=== PATIENT | female | born 1990 | race Two or more races ===

== ENCOUNTER 2023-10-06 04:40 | Inpatient (IN) | payer OTHER ==
[~2023-10-06] VITALS: Ht 157.5 cm; Wt 76.2 kg
[2023-10-06] MEDS ORDERED: IRON240 MG PO (05:12)
[2023-10-06] MEDS ORDERED: PRENATAL CAPLE1 EAC1 (05:12)
[2023-10-06] MEDS ORDERED: NIFEDIPINE20 MG PO (05:12)
[2023-10-06 06:25] LABS: PH,URINE 6.5 (5.0-8.0); URINE APPEARANCE Clear; URINE BILIRRUBIN Negative (NEGATIVE); URINE BLOOD NHT; URINE COLOR Yellow; URINE GLUCOSE Negative (NEGATIVE); URINE LEUKOCYTE Negative; URINE NITRATE Negative; URINE PROTEIN Negative (NEGATIVE)
[2023-10-06 06:28] LABS: URINE BACTERIA 1537.9 uL (0.0-1933); URINE EPITHELIAL CELLS 23.7 uL (0.0-38.8); URINE RBC 17.9 uL (0.0-20.8); URINE WBC 3.2 uL (0.0-23.2)
[2023-10-06 06:39] LABS: INR < 0.93; PARTIAL THROMBOPLASTIN TIME 25.4 SECONDS (22.0-34.0); PROTHROMBIN TIME 9.3 SECONDS (9.0-11.5)
[2023-10-06 06:53] LABS: HEMATOCRIT 35.4 % (36.0-45.00); HEMOGLOBIN 12.1 g/dL (12.0-15.00); MEAN CELL VOLUME 93.3 fL (80.00-100.00); MEAN CORPUSCULAR HEMOGLOBIN 31.8 pg (27.00-32.0); MEAN CORPUSCULAR HGB CONC 34.1 g/dl (32.0-36.0); PLATELET COUNT 169 K/uL (150-450); RED CELL DISTRIBUTION WIDTH 14.4 % (11.5-14.5)
[2023-10-06 06:59] LABS: BILIRUBIN TOTAL 1.29 mg/dL (0.3-1.2); CREATININE SERUM 0.69 mg/dL (0.55-1.02); GFR 98.59; GLOBULINA 3.6 G/DL (2.4-3.5); POTASSIUM 3.8 mEq/L (3.5-5.1); TOTAL PROTEIN 6.6 gm/dL (6.4-8.2)
[2023-10-07 07:44] LABS: HEMATOCRIT 34.5 % (36.0-45.00); HEMOGLOBIN 11.5 g/dL (12.0-15.00); MEAN CELL VOLUME 94.3 fL (80.00-100.00); MEAN CORPUSCULAR HEMOGLOBIN 31.5 pg (27.00-32.0); MEAN CORPUSCULAR HGB CONC 33.4 g/dl (32.0-36.0); PLATELET COUNT 154 K/uL (150-450); RED BLOOD COUNT 3.65 M/uL (4.00-6.00); RED CELL DISTRIBUTION WIDTH 14.6 % (11.5-14.5)
== END 2023-10-09 12:08 | disposition home or self-care (01) | DRG 788 ==
LOC: LDR 04:40 → O/R 20:41 → OB/GYN 21:57
PROVIDERS: ADMIT Specialist; ATTEND Specialist
PROC: 4A1HXCZ Monitoring of Products of Conception, Cardiac Rate, External Approach (ICD-10-PCS; 2023-10-06)
PROC: 10D00Z1 Extraction of Products of Conception, Low, Open Approach (ICD-10-PCS; principal; 2023-10-06 19:00)
DX: O33.5XX0 Maternal care for disproportion due to unusually large fetus, not applicable or unspecified (principal); O36.63X0 Maternal care for excessive fetal growth, third trimester, not applicable or unspecified; Z3A.39 39 weeks gestation of pregnancy; Z37.0 Single live birth; Z20.822 Contact with and (suspected) exposure to COVID-19